=== PATIENT | female | born 1950 ===

== ENCOUNTER 2017-06-02 08:21 | Day surgery (SDC) | payer MEDICARE, OTHER ==
[2017-06-02 08:51] VITALS: BMI 30.1
[2017-06-02 08:59] VITALS: TEMP 97
[2017-06-02] MEDS ORDERED: Propofol 10 mg/ml Inj (20 ML) ONE (10:19)
--- NOTE | 2017-06-02 10:21 | CP.SDSHP ---
Same Day Surgery H & P - History Proposed Procedure: COLONSCOPY Pre-Op Diagnosis: SEE NOTES - Previous Medical/Surgical History Cardiac: Hypertension Endocrine/Metabolic: Diabetes Misc: Other Pain: 4.Moderate Pain - Allergies Allergies: Allergies Penicillins Adverse Reaction (Verified 01/20/17 17:07) DIZZINESS not allergic to - Physical Exam General Appearance: N Vital Signs: Vital Signs 06/02/17 08:53 Temperature 97 F L Pulse Rate 78 Respiratory 18 Rate Blood Pressure 142/76 O2 Sat by Pulse 100 Oximetry Mental Status: Alert & Oriented x3 Neuro: WNL Heart: Other Lungs: WNL GI: Other - {Optional Preform as Required} Breast: WNL Abdomen: Other Rectal: Other Integument: WNL : WNL Ortho: Other ENT: WNL - Impression Pt. Evaluated Today:Candidate for Anesthesia & Procedure: Yes - Date & Time Time: 10:21 Short Stay Discharge - Short Stay Discharge Admitting Diagnosis/Reason for Visit: ACUTE GASTRITIS WITHOUT BLEEDING Disposition: HOME/ ROUTINE
[2017-06-02] MEDS ORDERED: Lactated Ringer's 500 ML IV SCH (10:30)
[2017-06-02] MEDS ORDERED: Belladonna-Phenobarbital PO ONE (10:55)
[2017-06-02 11:19] VITALS: BP 122/72; PULSE 57; RESP 15; O2SAT 98
== END 2017-06-02 14:35 | disposition home or self-care (01) ==
LOC: C.ENDO 08:21
PROVIDERS: ATTEND Specialist
DX: K57.90 Diverticulosis of intestine, part unspecified, without perforation or abscess without bleeding (principal); K64.8 Other hemorrhoids
CPT/HCPCS: 45380; 88305; J2704; J7120